=== PATIENT | female | born 1990 | race Caucasian/White ===

== ENCOUNTER 2020-03-17 11:48 | Emergency (ER) | payer OTHER ==
[~2020-03-17] VITALS: Ht 170.2 cm; Wt 104.3 kg
[2020-03-17 12:15] VITALS: BP_SYST 104
[2020-03-17] MEDS ORDERED: KETOROLAC TROMETHAMINE 60 MG/2 ML VIAL IM ONE (13:00)
[2020-03-17 13:50] VITALS: BP_SYST 104
== END 2020-03-17 13:50 | disposition home or self-care (01) ==
LOC: SED 11:48
DX: R10.13 Epigastric pain (principal); R11.0 Nausea
CPT/HCPCS: 81002; 81025; 96372; 99283; J1885